=== PATIENT | female | born 1985 | race Caucasian/White ===

== ENCOUNTER 2020-04-01 11:51 | Emergency (ER) | payer OTHER ==
[~2020-04-01] VITALS: Ht 160 cm; Wt 51.4 kg
[2020-04-01 12:44] LABS: BASO % 0.3 % (0.0-1.0); EOS # 0.1 10^3/uL (0.0-0.5); EOS % 2.3 % (0.0-3.0); HEMATOCRIT 42.7 % (36.0-47.0); HEMOGLOBIN 14.3 g/dl (12.0-15.5); LYMPH # 1.5 10^3/uL (1.5-5.0); LYMPH % 25.3 % (24.0-44.0); MEAN CORPUSCULAR HEMOGLOBIN 29.1 pg (27.0-33.0); MEAN CORPUSCULAR HGB CONC 33.5 g/dl (32.0-36.5); MEAN CORPUSCULAR VOLUME 86.8 fl (80.0-96.0); MONO # 0.3 10^3/uL (0.0-0.8); MONO % 5.5 % (0.0-5.0); NEUTROPHILS % 66.4 % (36.0-66.0); PLATELET COUNT, AUTOMATED 267 10^3/uL (150-450); RED BLOOD COUNT 4.92 10^6/uL (4.00-5.40)
[2020-04-01 12:58] LABS: INR 0.92; PROTHROMBIN TIME 12.6 SECONDS (12.5-14.3)
[2020-04-01 13:16] LABS: HCG, SERUM QUALITATIVE NEGATIVE (NEGATIVE)
[2020-04-01 13:21] LABS: ALBUMIN 4.1 GM/DL (3.2-5.2); ALT/SGPT 39 U/L (12-78); BILIRUBIN,DIRECT 0.2 MG/DL (0.0-0.2); BILIRUBIN,TOTAL 1.2 MG/DL (0.2-1.0); BLOOD UREA NITROGEN 11 MG/DL (7-18); CALCIUM LEVEL 9.2 MG/DL (8.5-10.1); CARBON DIOXIDE LEVEL 28 MEQ/L (21-32); CHLORIDE LEVEL 104 MEQ/L (98-107); CK-MB VALUE MASS < 1.0 NG/ML (<3.6); CPK CREATINE PHOSPHOKINASE 43 U/L (26-192); CREATININE FOR GFR 0.78 MG/DL (0.55-1.30); FREE THYROXINE INDEX 3.6 % (1.3-4.8); GLOMERULAR FILTRATION RATE > 60.0 (>60); GLUCOSE, FASTING 86 MG/DL (70-100); LIPASE 127 U/L (73-393); MB/CK RELATIVE INDEX 2.33 (< OR =4); SODIUM LEVEL 135 MEQ/L (136-145); T UPTAKE 34 % (30-39); THYROXINE (T4) 10.7 UG/DL (4.5-12.0); TOTAL PROTEIN 7.2 GM/DL (6.4-8.2); TROPONIN I < 0.02 NG/ML (< 0.10)
[2020-04-01] MEDS ORDERED: ISOVUE-370 76% 100ML VIAL As Ordered ONE (13:26)
--- NOTE | 2020-04-01 14:06 | REPVR ---
PROCEDURE INFORMATION: Exam: XR Chest, 2 Views Exam date and time: 04/01/2020 12:32 PM Age: 34 years old Clinical indication: Chest pain; On breathing; Patient HX: denied; Additional info: Cp TECHNIQUE: Imaging protocol: XR of the chest Views: 2 views. COMPARISON: No relevant prior studies available. FINDINGS: Lungs: Unremarkable. No consolidation. Pleural space: Unremarkable. No pleural effusion. No pneumothorax. Heart/Mediastinum: On the frontal view overlying the left side of the heart there is a questionable artifact noted which appears to be curled plastic device. This is not seen on the lateral view. Alternatively, this could represent a tangle of vessels in the vascular malformation. But is only seen well on the frontal view. Bones/joints: Unremarkable. IMPRESSION: Possible artifact overlying the heart. This is seen only on the frontal view not seen on the lateral view. Consider repeat frontal view versus CT scan as clinically indicated. Electronically signed by: Jose oGodman On 04/01/2020 14:06:13 PM
--- NOTE | 2020-04-01 14:14 | REPVR ---
PROCEDURE INFORMATION: Exam: CT Angiography Chest With Contrast Exam date and time: 04/01/2020 1:48 PM Age: 34 years old Clinical indication: Shortness of breath; Additional info: SOB TECHNIQUE: Imaging protocol: Computed tomographic angiography of the chest with intravenous contrast. 3D rendering (Not supervised by radiologist): MIP and/or 3D reconstructed images were created by the technologist. Radiation optimization: All CT scans at this facility use at least one of these dose optimization techniques: automated exposure control; mA and/or kV adjustment per patient size (includes targeted exams where dose is matched to clinical indication); or iterative reconstruction. Contrast material: ISOVUE 370; Contrast volume: 75 ml; Contrast route: INTRAVENOUS (IV); COMPARISON: CR Chest, 2 view PA, Lat 04/01/2020 1:33 PM FINDINGS: Pulmonary arteries: Normal. No pulmonary emboli. Aorta: Unremarkable. No aortic aneurysm. No aortic dissection. Lungs: Unremarkable. No consolidation. No masses. Pleural space: Unremarkable. No pneumothorax. No pleural effusion. Heart: Unremarkable. No cardiomegaly. No pericardial effusion. Lymph nodes: Unremarkable. No enlarged lymph nodes. Bones/joints: Unremarkable. No acute fracture. Soft tissues: Unremarkable. IMPRESSION: No acute findings. The abnormality on the chest x-ray is not seen on the CT scan or the tensile tester topogram and is likely external artifact. Electronically signed by: Jose Goodman On 04/01/2020 14:14:43 PM
[2020-04-01 14:15] VITALS: BP 106/63
--- NOTE | 2020-04-01 20:40 | ECGEPIP ---
[facility] - ED Test Date: 2020-04-01 Pat Name: ALLAN FRANKS Department: Room: - Gender: Female Medicaid Billing Clerk: ROSA : 1985 Requested By: SAGE ROSEN Order Number: [id number] Reading MD: Thomas Sheth Measurements Intervals [place] Rate: 64 P: 12 HI: 127 QRS: 54 QRSD: 94 T: 45 QT: 394 QTc: 408 Interpretive Statements SINUS RHYTHM INCOMPLETE RIGHT BUNDLE BRANCH BLOCK NO PRIORS FOR COMPARISON Electronically Signed on 04-01-2020 20:40:01 EDT by Thomas Sheth
== END 2020-04-01 14:39 | disposition home or self-care (01) ==
LOC: M ED 11:51
DX: R00.2 Palpitations (principal); D68.2 Hereditary deficiency of other clotting factors; I45.10 Unspecified right bundle-branch block; R06.02 Shortness of breath; Z82.49 Family history of ischemic heart disease and other diseases of the circulatory system
CPT/HCPCS: 71046; 71275; 80048; 80076; 82550; 82553; 83690; 84436; 84443; 84479; 84484; 84703; 85025; 85610; 93005; 93041; 94760; 99285; Q9967

== ENCOUNTER → 2020-04-11 | Outpatient (CLI) | payer OTHER | LOC: EDUNIT# 08:15 → M LABSMTC 08:25 | PROVIDERS: ATTEND Anesthesiology | DX: Z01.812 Encounter for preprocedural laboratory examination (principal); Z20.828 Contact with and (suspected) exposure to other viral communicable diseases | CPT/HCPCS: C9803; U0003 ==

== ENCOUNTER 2020-04-16 09:10 | Day surgery (SDC) | payer OTHER ==
[~2020-04-16] VITALS: Ht 160 cm; Wt 50.8 kg
[~2020-04-16 09:10] MED LIST: ACETAMINOPHEN 325 MG TAB PO PRN; MIDAZOLAM INJ 2MG/2ML VIAL (J2250 PER 1MG) As Ordered ONE; OFLOXACIN 0.3 % (OCUFLOX) OPTH SOL 5ML OS ONE; PHENYLEPHRINE 2.5% OPHTH SOL 2ML OS ONE; PROPARACAINE 0.5% OPHTH SOL 15ML OS ONE; PROPARACAINE 0.5% OPHTH SOL 15ML OS PRN; TROPICAMIDE 1% OPHTH SOLN 2ML OS ONE; fentaNYL 100 MCG/2 ML INJECTION (J3010) As Ordered ONE
[2020-04-16] MEDS ORDERED: POVIDONE-IODINE 5% OPHTH PREP SOL 30ML As Ordered ONE (11:19)
[2020-04-16] MEDS ORDERED: PROPARACAINE 0.5% OPHTH SOL 15ML As Ordered ONE ×2 (11:27→12:33)
[2020-04-16] MEDS ORDERED: fentaNYL 100 MCG/2 ML INJECTION (J3010) IV PRN (12:00)
[2020-04-16] MEDS ORDERED: LR 1,000 ML IV SCH (12:00)
[2020-04-16] MEDS ORDERED: METOCLOPRAMIDE INJ 10MG/2ML VIAL (J2765 PER 1) IV PRN (12:00)
[2020-04-16] MEDS ORDERED: ONDANSETRON 4MG/2ML VIAL IV PRN (12:00)
[2020-04-16] MEDS: oxyCODONE 5MG TAB PO PRN ×2 (12:14→13:10)
[2020-04-16 12:55] VITALS: BP 114/77
[2020-04-16] MEDS ORDERED: TRIMETHOBENZAMIDE 300 MG CAP PO PRN (13:00)
[2020-04-16] MEDS ORDERED: acetaZOLAMIDE 500 MG ER CAP PO ONE (13:00)
[2020-04-16] MEDS ORDERED: oxyCODONE 5MG TAB As Ordered ONE (13:09)
== END 2020-04-16 14:12 | disposition home or self-care (01) ==
LOC: M SDC 09:10 → EDUNIT# 13:00 → M SDC 14:12
PROVIDERS: ATTEND Ophthalmology
DX: H18.832 Recurrent erosion of cornea, left eye (principal)
CPT/HCPCS: 65435; 81025; J2250; J3010

== ENCOUNTER → 2020-04-18 | Outpatient (CLI) | payer OTHER | LOC: EDUNIT# 08:10 → M LABSMTC 08:28 | PROVIDERS: ATTEND Anesthesiology | DX: Z01.812 Encounter for preprocedural laboratory examination (principal); Z20.828 Contact with and (suspected) exposure to other viral communicable diseases | CPT/HCPCS: C9803; U0003 ==

== ENCOUNTER 2020-04-23 08:36 | Day surgery (SDC) | payer OTHER ==
[~2020-04-23] VITALS: Ht 160 cm; Wt 53.0 kg
[~2020-04-23 08:36] MED LIST changes: -ACETAMINOPHEN 325 MG TAB PO PRN; +CEFUROXIME 1MG/0.1ML INTRACAMERAL INJ As Ordered ONE; +DUOVISC (0.50ML VISCOAT/0.55ML PROVISC) OPHTH KIT As Ordered ONE; -MIDAZOLAM INJ 2MG/2ML VIAL (J2250 PER 1MG) As Ordered ONE; -OFLOXACIN 0.3 % (OCUFLOX) OPTH SOL 5ML OS ONE; -PHENYLEPHRINE 2.5% OPHTH SOL 2ML OS ONE; +POVIDONE-IODINE 5% OPHTH PREP SOL 30ML As Ordered ONE; -PROPARACAINE 0.5% OPHTH SOL 15ML OS ONE; -PROPARACAINE 0.5% OPHTH SOL 15ML OS PRN; -TROPICAMIDE 1% OPHTH SOLN 2ML OS ONE; -fentaNYL 100 MCG/2 ML INJECTION (J3010) As Ordered ONE
[2020-04-23] MEDS ORDERED: PROPARACAINE 0.5% OPHTH SOL 15ML As Ordered ONE (10:18)
[2020-04-23] MEDS ORDERED: fentaNYL 100 MCG/2 ML INJECTION (J3010) As Ordered ONE (10:24)
[2020-04-23] MEDS ORDERED: MIDAZOLAM INJ 2MG/2ML VIAL (J2250 PER 1MG) As Ordered ONE (10:24)
[2020-04-23 11:30] VITALS: BP 102/66
== END 2020-04-23 11:35 | disposition home or self-care (01) ==
LOC: M SDC 08:36 → EDUNIT# 11:00 → M SDC 11:35
PROVIDERS: ATTEND Ophthalmology
DX: H18.831 Recurrent erosion of cornea, right eye (principal); D68.51 Activated protein C resistance; Z92.21 Personal history of antineoplastic chemotherapy
CPT/HCPCS: 65435; 81025; J2250; J3010

== ENCOUNTER → 2020-07-23 | Outpatient (CLI) | payer OTHER ==
[~2020-07-23] MED LIST changes: -CEFUROXIME 1MG/0.1ML INTRACAMERAL INJ As Ordered ONE; -DUOVISC (0.50ML VISCOAT/0.55ML PROVISC) OPHTH KIT As Ordered ONE; +GASTROGRAFIN SOLUTION 30ML (Q9963) As Ordered ONE; +ISOVUE-370 76% 100ML VIAL As Ordered ONE; -POVIDONE-IODINE 5% OPHTH PREP SOL 30ML As Ordered ONE
--- NOTE | 2020-07-24 06:51 | REP ---
INDICATION: CHANGE IN BOWEL HABIT. COMPARISON: None TECHNIQUE: Axial contrast-enhanced images from the lung bases to the pubic symphysis using oral and 100 cc Isovue 370 intravenous contrast material. Coronal and sagittal reformations obtained. This CT examination was performed using the following dose reduction techniques: Automated exposure control, adjustment of mA and/or kv according to the patient's size, and the use of iterative reconstruction technique. FINDINGS: Liver, spleen, pancreas, bilateral adrenal glands and kidneys are normal. The enteric system including stomach, small, and large bowel appears normal. No evidence for obstruction or acute inflammatory process. Normal terminal ileum and appendix are identified in the right lower quadrant. Pelvis demonstrates normal bladder and possible myomatous changes to the uterus as well as presumed physiologic adnexal cysts. No ascites. No free air. No intraperitoneal or retroperitoneal adenopathy. Abdominal aorta and vasculature appear normal. Musculoskeletal structures are intact and without acute osseous abnormality. IMPRESSION: No acute abdominopelvic pathology appreciated. <Electronically signed by Mahin Clark > 07/24/20 [id number]
== END ==
LOC: M RAD 16:02
PROVIDERS: ATTEND Physician Assistant
DX: R19.4 Change in bowel habit (principal)
CPT/HCPCS: 74177; Q9963; Q9967

== ENCOUNTER → 2020-08-12 | Outpatient (CLI) | payer OTHER ==
[2020-08-12 14:01] LABS: HEMOGLOBIN 13.5 g/dl (12.0-15.5); MEAN CORPUSCULAR HEMOGLOBIN 29.5 pg (27.0-33.0); MEAN CORPUSCULAR HGB CONC 33.8 g/dl (32.0-36.5); MEAN CORPUSCULAR VOLUME 87.5 fl (80.0-96.0); PLATELET COUNT, AUTOMATED 265 10^3/uL (150-450); RED BLOOD COUNT 4.57 10^6/uL (4.00-5.40); WHITE BLOOD COUNT 6.6 10^3/uL (4.0-10.0)
[2020-08-12 14:35] LABS: ERYTHROCYTE SEDIMENTATION RATE 8 mm/hr (0-20)
[2020-08-12 14:44] LABS: ALBUMIN 4.1 GM/DL (3.2-5.2); ALT/SGPT 37 U/L (12-78); BLOOD UREA NITROGEN 15 MG/DL (7-18); CARBON DIOXIDE LEVEL 30 MEQ/L (21-32); CHLORIDE LEVEL 106 MEQ/L (98-107); CREATININE FOR GFR 0.91 MG/DL (0.55-1.30); GLOMERULAR FILTRATION RATE > 60.0 (>60); GLUCOSE, FASTING 78 MG/DL (70-100); POTASSIUM SERUM 4.4 MEQ/L (3.5-5.1); SODIUM LEVEL 141 MEQ/L (136-145); TOTAL PROTEIN 7.3 GM/DL (6.4-8.2)
[2020-08-13 15:10] LABS: ANTINUCLEAR ANTIBODIES DIRECT Negative (Negative)
== END ==
LOC: M LAB 13:10
PROVIDERS: ATTEND Nurse Practitioner Family
DX: R19.7 Diarrhea, unspecified (principal); R14.0 Abdominal distension (gaseous)

== ENCOUNTER → 2020-08-13 | Outpatient (REF) | payer OTHER ==
[2020-08-24 08:20] LABS: H PYLORI STOOL ANTIGEN Negative
[2020-08-24 08:21] LABS: FATS NEUTRAL Normal
[2020-08-24 08:23] LABS: FATS TOTAL Normal
[2020-08-24 08:28] LABS: CALPROTECTIN STOOL 28 ug/g
== END ==
LOC: M LAB REF 14:11
PROVIDERS: ATTEND Nurse Practitioner Family
DX: R19.7 Diarrhea, unspecified (principal); R14.0 Abdominal distension (gaseous)